=== PATIENT | male | born 1945 | race Hispanic/Latino ===

== ENCOUNTER 2017-11-15 18:56 | Emergency (ER) | payer MEDICARE ==
[2017-11-15 18:57] VITALS: PULSE 100
[2017-11-15 19:17] VITALS: BMI 31.0
[2017-11-15] MEDS ORDERED: Albuterol 0.083% Inhal Sol (2.5 mg/3 mL) UD INH STA (19:24)
[2017-11-15] MEDS ORDERED: Albuterol-Ipratrop 3 mg / 0.5 (3 ml) UD IH STA (19:24)
[2017-11-15 19:44] LABS: BASO # 0.03 K/mm3 (0.0-2.0); BASO % 0.3 % (0.0-3.0); EOS # 0.2 (0.0-0.7); EOS % 1.3 % (1.5-5.0); GRAN # 9.97 (1.4-6.5); GRAN % 83.8 % (50.0-68.0); HEMOGLOBIN 13.4 g/dL (14.0-18.0); LYMPH # 0.9 (1.2-3.4); LYMPH % 7.6 % (22.0-35.0); MEAN CELL VOLUME 89.3 fl (80.0-105.0); MEAN CORPUSCULAR HEMOGLOBIN 29.4 pg (25.0-35.0); MEAN CORPUSCULAR HGB CONC 32.9 g/dl (31.0-37.0); MEAN PLATELET VOLUME 9.3 fl (7.0-11.0); MONO # 0.8 (0.1-0.6); RBC 4.56 10^6/uL (3.5-6.1); RED CELL DISTRIBUTION WIDTH 16.1 % (11.5-14.5); URINE BILIRUBIN NEGATIVE (NEGATIVE); URINE BLOOD NEGATIVE (NEGATIVE); URINE GLUCOSE (UA) 100 mg/dL (NEGATIVE); URINE LEUKOCYTE ESTERASE TRACE Leu/uL (NEGATIVE); URINE PROTEIN NEGATIVE mg/dL (<30 mg/dL); URINE UROBILINOGEN 0.2 E.U./dL (<1 E.U./dL); WHITE BLOOD COUNT 11.9 10^3/ul (4.5-11.0)
[2017-11-15 19:45] LABS: URINE APPEARANCE CLEAR (CLEAR); URINE COLOR YELLOW (YELLOW)
[2017-11-15 19:50] LABS: ALB/GLOB RATIO 1.2 (1.1-1.8); ALBUMIN 4.2 g/dL (3.0-4.8); CALCIUM 10.2 mg/dL (8.4-10.5)
[2017-11-15 19:57] LABS: PROTHROMBIN TIME 45.3 SECONDS (9.4-12.5)
[2017-11-15 19:59] LABS: INR 3.83 (0.93-1.08)
[2017-11-15 20:00] LABS: VENOUS BLOOD GAS BASE EXCESS -0.7 mmol/L (0.0-2.0); VENOUS BLOOD GAS PO2 164 mm/Hg (30-55); VENOUS BLOOD PH 7.42 (7.32-7.43)
[2017-11-15 20:04] LABS: URINE BACTERIA FEW (NEG); URINE EPITHELIAL CELLS 0 - 2 /hpf (0-5); URINE FINE GRANULAR CAST 0 - 2 /hpf (0-2); URINE RBC 0 - 2 /hpf (0-2)
[2017-11-15] MEDS ORDERED: Phytonadione 10 MG in Sodium Chloride 0.9% 50 ML IV ONE (20:04)
[2017-11-15 20:33] LABS: TROPONIN I 0.09 ng/mL
--- NOTE | 2017-11-15 20:37 | ED PDOC ---
Arrival/HPI - General Chief Complaint: GI Problem Time Seen by Provider: 11/15/17 19:15 Historian: Patient - History of Present Illness Narrative History of Present Illness (Text): 11/15/17 19:20 Nba Alston is a 71 year old male, whose past medical history includes diabetes, CHF, and wears LVAD on coumadin, who presents to the emergency department complaining of coughing up blood prior to arrival. At present, patient is actively coughing up bright red blood, no clots. Patient's family states that patient was having dinner at home, eating a sandwich, when onset of symptoms occurred. Patient notes that a similar incident happened once before but not as severe. At that time, patient was treated at [facility].No other complaints offered at this time. Patient is a former smoker and quit smoking 3 years ago. PMD: Dr. Nick Parra Time/Duration: Prior to Arrival Symptom Onset: Sudden Symptom Course: Unchanged Severity Level: Mild Activities at Onset: Light, Eating Context: Home Past Medical History - Provider Review Nursing Documentation Reviewed: Yes - Infectious Disease Hx of Infectious Diseases: None - Tetanus Immunization Tetanus Immunization: Unknown - Cardiac Hx Hypertension: Yes Hx Pacemaker: Yes Other/Comment: LVAD, Defibrillator - Pulmonary Hx Chronic Obstructive Pulmonary Disease (COPD): Yes Hx Emphysema: Yes - Neurological Hx Paralysis: No - HEENT Hx HEENT Disorder: Yes (use reading glasses) - Renal Hx Renal Disorder: Yes - Endocrine/Metabolic Hx Diabetes Mellitus Type 1: Yes Hx Diabetes Mellitus Type 2: Yes - Hematological/Oncological Hx Blood Disorders: No Hx Blood Transfusions: No - Integumentary Hx Dermatological Disorder: No Other/Comment: multiple red herrera to ble from scratching. Pt "stated THe steroids they gave me make me itchy". left eye scar from boxing. - Musculoskeletal/Rheumatological Hx Musculoskeletal Disorders: Yes (shrapnel removed knee and hand) - Gastrointestinal Hx Gastrointestinal Disorders: Yes (gerd) Hx Gastroesophageal Reflux: Yes - Genitourinary/Gynecological Hx Genitourinary Disorders: No - Psychiatric Hx Emotional Abuse: No Hx Physical Abuse: No Hx Substance Use: No - Surgical History Hx Cholecystectomy: Yes Hx Orthopedic Surgery: Yes (knee) Other/Comment: LVAD insertion - Anesthesia Hx Anesthesia: Yes Hx Anesthesia Reactions: No Hx Malignant Hyperthermia: No - Suicidal Assessment Feels Threatened In Home Enviroment: No Family/Social History - Physician Review Nursing Documentation Reviewed: Yes Family/Social History: No Known Family HX Smoking Status: Former Smoker Hx Alcohol Use: No Hx Substance Use: No Hx Substance Use Treatment: No Allergies/Home Meds Allergies/Adverse Reactions: Allergies codeine Allergy (Verified 11/15/17 19:18) ITCHING nitorglycerin Allergy (Uncoded 11/15/17 19:18) RASH Home Medications: Home Meds Medication Instructions Recorded Confirmed Insulin Glargine,Hum.rec.anlog 45 unit SC ACB 07/09/14 11/07/15 [Lantus] Insulin Glargine,Hum.rec.anlog 50 unit SC HS 11/14/14 09/25/17 [Lantus] Zolpidem Tartrate [Ambien] 10 mg PO HS PRN 12/20/14 09/25/17 Docusate [Colace] 100 mg PO BID PRN 06/30/15 09/25/17 Spironolactone [Aldactone] 25 mg PO DAILY 06/30/15 09/25/17 Tiotropium [Spiriva] 18 mcg IH DAILY 06/30/15 09/25/17 Insulin Aspart, Recombinant 10 unit SC ACBD 07/05/15 09/25/17 [Novolog] Allopurinol [Zyloprim] 200 mg PO DAILY 11/07/15 09/25/17 Aspirin [Aspirin Chewable] 81 mg PO DAILY 11/07/15 09/25/17 Atorvastatin [Lipitor] 10 mg PO DAILY 11/07/15 09/25/17 Bisacodyl [Correctol] 10 mg PO DAILY PRN 11/07/15 09/25/17 Cholecalciferol (Vitamin D3) 2,000 units PO BID 11/07/15 09/25/17 [Vitamin D3] Furosemide [Lasix] 40 mg PO BID 11/07/15 09/25/17 Isosorbide Mononitrate [Ismo] 10 mg PO BID 11/07/15 11/07/15 Lisinopril [Zestril] 2.5 mg PO DAILY 11/07/15 11/07/15 Egrug-4-Yede Ethyl Esters 1 GM 1 gm PO BID 11/07/15 09/25/17 [Lovaza] Pantoprazole [Protonix EC Tab] 40 mg PO DAILY 11/07/15 09/25/17 Pramipexole [Mirapex] 0.5 tab PO DAILY 11/07/15 09/25/17 Tamsulosin [Flomax] 0.4 mg PO HS 11/07/15 09/25/17 Warfarin [Coumadin] 18 mcg PO DAILY 11/07/15 09/25/17 Review of Systems - Physician Review All systems were reviewed & negative as marked: Yes - Review of Systems Constitutional: absent: Fevers, Night Sweats Eyes: absent: Vision Changes ENT: absent: Hearing Changes Respiratory: Cough, Other (Coughing up blood). absent: SOB Cardiovascular: absent: Chest Pain Gastrointestinal: absent: Abdominal Pain Genitourinary Male: absent: Dysuria, Frequency Musculoskeletal: absent: Arthralgias Skin: absent: Rash, Pruritis Neurological: absent: Headache Endocrine: absent: Diaphoresis Hemo/Lymphatic: absent: Adenopathy Psychiatric: absent: Anxiety, Depression Physical Exam Vital Signs Reviewed: Yes Vital Signs Temp Pulse Resp BP Pulse Ox 11/16/17 00:39 98 F 99 H 24 85/71 L 92 L 11/15/17 23:18 98 F 99 H 23 89/50 L 90 L 11/15/17 22:47 92 H 24 85/56 L 94 L 11/15/17 22:30 98.1 F 89 23 78/37 L 97 11/15/17 21:43 90 25 H 94/55 L 91 L 11/15/17 21:25 98.4 F 92 H 27 H 81/62 L 92 L 11/15/17 19:19 98.8 F 74 20 93/75 L 96 Temperature: Afebrile Blood Pressure: Hypotensive Pulse: Regular Respiratory Rate: Normal Appearance: Positive for: Uncomfortable Pain Distress: None Mental Status: Positive for: Alert and Oriented X 3 - Systems Exam Head: Present: Atraumatic, Normocephalic Pupils: Present: PERRL Extroacular Muscles: Present: EOMI Conjunctiva: Present: Normal Mouth: Present: Moist Mucous Membranes Neck: No: JVD Respiratory/Chest: Present: Rales (Mild rales at the bases with some wheezes) Cardiovascular: Present: Regular Rate and Rhythm, Normal S1, S2. No: Murmurs Abdomen: Present: Normal Bowel Sounds. No: Tenderness, Distention, Peritoneal Signs Back: Present: Normal Inspection Upper Extremity: Present: Normal Inspection. No: Cyanosis, Edema Lower Extremity: Present: Normal Inspection. No: Edema Neurological: Present: GCS=15, CN II-XII Intact, Speech Normal Skin: Present: Warm, Dry, Normal Color. No: Rashes Psychiatric: Present: Alert, Oriented x 3, Normal Insight, Normal Concentration Medical Decision Making ED Course and Treatment: 11/15/17 20:39 Impression: 71 year old male complaining of coughing up blood prior to arrival. Differential Diagnosis included but are not limited to: Bronchiectasis vs. COPD Plan: -- Chest X-ray -- Chest CT -- VBG and Blood Culture -- Urine Culture -- Labs -- Albuterol, Duoneb, Solumedrol, and Vitamin K Injection -- Reassess and disposition Prior Visits: Notes and results from previous visits were reviewed. Patient was last seen in the emergency department on 09/25/17 for CHF exacerbation and felt shortness of breath. Progress Notes: 11/15/2017 21:[address] FINDINGS: LIMITATIONS: Extensive streak artifact from metallic devices in the heart. LUNGS: Multifocal areas of groundglass density in the lungs bilaterally, with a lower lobe predominance, most focal in the left lower lobe, suspicious for multifocal, bilateral groundglass consolidation. Diffuse pulmonary interstitial prominence, greatest in the lung periphery, with associated subpleural cystic changes seen in some areas. PLEURAL SPACE: No pneumothorax or significant pleural effusions seen. HEART: Left ventricular assist device in place, which causes extensive streak artifact. Prosthetic aortic valve. Cardiac pacing device is in place. Heart appears diffusely enlarged. No evidence of significant pericardial effusion. MEDIASTINUM: Esophagus is mildly dilated, and is filled with air and fluid/ debris. BONES/JOINTS: Sternotomy wires noted. SOFT TISSUES: Ventral hernia, with a wide neck, in the midline upper abdominal wall, which contains only fat. VASCULATURE: Exam is nondiagnostic for aortic dissection and pulmonary emboli, secondary to unenhanced technique. LYMPH NODES: Multiple small lymph nodes seen in the mediastinum, none appearing pathologically enlarged. This is a nonspecific finding. No evidence of diffuse pathologic lymphadenopathy. GALLBLADDER AND BILE DUCTS: Cholecystectomy clips. KIDNEYS AND URETERS: Bilateral perinephric stranding, a nonspecific finding. Low density lesions in the kidneys bilaterally, most likely representing cysts. IMPRESSION: - Groundglass consolidation in the lungs bilaterally, as described. In an acute setting, this could be due to alveolar pulmonary edema versus diffuse ground glass infiltrates /pneumonia. - Diffuse pulmonary interstitial thickening. This could be due to acute pulmonary vascular congestion, but it also has some features suggestive of underlying chronic interstitial lung disease, and recommend clinical correlation. - Cardiomegaly, with a left ventricular assist device in place. - See above for remaining findings. Dictator: Sarah Michelle MD 11/15/17 23:02 Discussed case with transfer referral center multiple times and am told no beds are available for patient. Requested to call cardiac fellow directly. 11/15/17 23:[address] Willoughby, car pre cooler, whom spoke to ER doctor Dr. Nick at transfer center, whom accepts patient. Nurse currently calling for ambulance for ER-to-ER transfer. - Lab Interpretations Microbiology Results: Microbiology Results 11/15/17 20:15 Blood-Venous Blood Culture - Preliminary NO GROWTH AFTER 48 HOURS 11/15/17 19:45 Blood-Venous Blood Culture - Preliminary NO GROWTH AFTER 48 HOURS 11/15/17 20:31 Urine,Clean Catch Urine Culture - Final No Growth (<1,000 CFU/ML) Lab Results: 11/15/17 19:25 11/15/17 19:25 Lab Results 11/15/17 19:45: pO2 164 H, VBG pH 7.42, VBG pCO2 36.0 L, VBG HCO3 23.4, VBG Total CO2 24.5, VBG O2 Sat (Calc) 99.6 H, VBG Base Excess -0.7 L, VBG Potassium 4.6, Glucose 254 H, Lactate 2.0, FiO2 21.0, Sodium 135.0, Chloride 104.0, Venous Blood Potassium 4.6 11/15/17 19:25: Urine Color Yellow, Urine Appearance Clear, Urine pH 6.0, Ur Specific [place] 1.020, Urine Protein Negative, Urine Glucose (UA) 100 H, Urine Ketones Negative, Urine Blood Negative, Urine Nitrate Negative, Urine Bilirubin Negative, Urine Urobilinogen 0.2, Ur Leukocyte Esterase Trace H, Urine RBC 0 - 2 , Urine WBC 2 - 5, Ur Epithelial Cells 0 - 2, Urine Bacteria Few, Fine Granular Casts 0 - 2 11/15/17 19:25: Blood Type O POSITIVE, Antibody Screen Negative, BBK History Checked Patient has bt 11/15/17 19:25: Sodium 138, Potassium 5.0, Chloride 102, Carbon Dioxide 24, Anion Gap 17, BUN 29 H, Creatinine 2.0 H, Est GFR ( Amer) 40, Est GFR ( Non-Af Amer) 33, Random Glucose 254 H, Calcium 10.2, Total Bilirubin 0.7, AST 36 , ALT 25, Alkaline Phosphatase 95, Lactate Dehydrogenase 826 H, Total Creatine Kinase 48, Troponin I 0.09, NT-Pro-B Natriuret Pep 1740 H, Total Protein 7.8, Albumin 4.2, Globulin 3.6, Albumin/Globulin Ratio 1.2 11/15/17 19:25: PT 45.3 H, INR 3.83 H* 11/15/17 19:25: WBC 11.9 H, RBC 4.56, Hgb 13.4 L D, Hct 40.7 L, MCV 89.3, MCH 29.4, MCHC 32.9, RDW 16.1 H, Plt Count 292, MPV 9.3, Gran % 83.8 H, Lymph % ( Auto) 7.6 L, Schuyler % (Auto) 7.0 H, Eos % (Auto) 1.3 L, Baso % (Auto) 0.3, Gran # 9.97 H, Lymph # (Auto) 0.9 L, Schuyler # (Auto) 0.8 H, Eos # (Auto) 0.2, Baso # ( Auto) 0.03 I have reviewed the lab results: Yes - RAD Interpretation Radiology Orders: 11/15/17 19:20 CHEST ONE VIEW [RAD] Stat 11/15/17 19:48 CHEST W/O CONTRAST [CT] Stat - Medication Orders Current Medication Orders: Discontinued Medications Albuterol Sulfate (Albuterol 0.083% Inhal Sona (2.5 Mg/3 Ml) Ud) 5 mg INH STAT STA Stop: 11/15/17 19:25 Last Admin: 11/15/17 19:42 Dose: 5 mg Albuterol/Ipratropium (Duoneb 3 Mg/0.5 Mg (3 Ml) Ud) 3 ml IH STAT STA Stop: 11/15/17 19:25 Last Admin: 11/15/17 19:42 Dose: 3 ml Phytonadione 10 mg/ Sodium (Chloride) 51 mls @ 100 mls/hr IV ONCE ONE Stop: 11/15/17 20:34 Last Admin: 11/15/17 20:27 Dose: 100 mls/hr eMAR Start Stop Document 11/15/17 20:27 RD (Rec: 11/15/17 20:27 RD [id number]) Intravenous Solution Start Date 11/15/17 Start Time 20:27 End Date 11/15/17 End time 21:27 Total Infusion Time 60 Lorazepam (Ativan) 1 mg IVP ONCE ONE PRN Reason: Protocol Stop: 11/15/17 21:20 Last Admin: 11/15/17 21:38 Dose: 1 mg IVP Administration Document 11/15/17 21:38 RD (Rec: 11/15/17 21:38 RD [id number]) Charges for Administration # of IVP Administrations 1 Methylprednisolone (Solu-Medrol) 125 mg IVP STAT STA Stop: 11/15/17 19:25 Last Admin: 11/15/17 19:42 Dose: 125 mg IVP Administration Document 11/15/17 19:42 RD (Rec: 11/15/17 19:42 RD [id number]) Charges for Administration # of IVP Administrations 1 - PA / DERRICK ENGINEER / Resident Statement MD/DO has reviewed & agrees with the documentation as recorded. - Scribe Statement The provider has reviewed the documentation as recorded by the Akil Sanchez Provider Scribe Attestation: All medical record entries made by the Marilouibruddy were at my direction and personally dictated by me. I have reviewed the chart and agree that the record accurately reflects my personal performance of the history, physical exam, medical decision making, and the department course for this patient. I have also personally directed, reviewed, and agree with the discharge instructions and disposition. Disposition/Present on Arrival - Present on Arrival Any Indicators Present on Arrival: No History of DVT/PE: No History of Uncontrolled Diabetes: No Urinary Catheter: No History of Decub. Ulcer: No History Surgical Site Infection Following: None - Disposition Have Diagnosis and Disposition been Completed?: Yes Diagnosis: Major hemoptysis, Elevated INR, Congestive heart failure (CHF), COPD (chronic obstructive pulmonary disease), Presence of left ventricular assist device (LVAD ) Disposition: Transfer [facility] Disposition Time: 02:00 Patient Plan: Transfer To ([facility]) Condition: FAIR Discharge Instructions (ExitCare): Heart Failure (ED) Referrals: Nick Parra MD [Primary Care Provider] - Follow up with primary Forms: [employer] [place]
--- NOTE | 2017-11-15 21:23 | CT ---
EXAM: CT Chest Without Intravenous Contrast EXAM DATE/TIME: 11/15/2017 7:48 PM CLINICAL HISTORY: 71 years old, male; Signs and symptoms; Other: Hemopysis; Prior surgery; Surgery date: 6+ months; Surgery type: HX pacemaker, HX lvad, defibrillator; Patient HX: HX copd; Additional info: Hemoptysis, copd, chf TECHNIQUE: Axial computed tomography images of the chest without intravenous contrast. All CT scans at this facility use one or more dose reduction techniques, viz.: automated exposure control; ma/kV adjustment per patient size (including targeted exams where dose is matched to indication; i.e. head); or iterative reconstruction technique. Coronal and sagittal reformatted images were created and reviewed. COMPARISON: Prior chest radiographs of 2017-09-25 FINDINGS: LIMITATIONS: Extensive streak artifact from metallic devices in the heart. LUNGS: Multifocal areas of groundglass density in the lungs bilaterally, with a lower lobe predominance, most focal in the left lower lobe, suspicious for multifocal, bilateral groundglass consolidation. Diffuse pulmonary interstitial prominence, greatest in the lung periphery, with associated subpleural cystic changes seen in some areas. PLEURAL SPACE: No pneumothorax or significant pleural effusions seen. HEART: Left ventricular assist device in place, which causes extensive streak artifact. Prosthetic aortic valve. Cardiac pacing device is in place. Heart appears diffusely enlarged. No evidence of significant pericardial effusion. MEDIASTINUM: Esophagus is mildly dilated, and is filled with air and fluid/debris. BONES/JOINTS: Sternotomy wires noted. SOFT TISSUES: Ventral hernia, with a wide neck, in the midline upper abdominal wall, which contains only fat. VASCULATURE: Exam is nondiagnostic for aortic dissection and pulmonary emboli, secondary to unenhanced technique. LYMPH NODES: Multiple small lymph nodes seen in the mediastinum, none appearing pathologically enlarged. This is a nonspecific finding. No evidence of diffuse pathologic lymphadenopathy. GALLBLADDER AND BILE DUCTS: Cholecystectomy clips. KIDNEYS AND URETERS: Bilateral perinephric stranding, a nonspecific finding. Low density lesions in the kidneys bilaterally, most likely representing cysts. IMPRESSION: - Groundglass consolidation in the lungs bilaterally, as described. In an acute setting, this could be due to alveolar pulmonary edema versus diffuse ground glass infiltrates/pneumonia. - Diffuse pulmonary interstitial thickening. This could be due to acute pulmonary vascular congestion, but it also has some features suggestive of underlying chronic interstitial lung disease, and recommend clinical correlation. - Cardiomegaly, with a left ventricular assist device in place. - See above for remaining findings.
[2017-11-16 00:06] VITALS: PULSE 99; TEMP 98
[2017-11-16 00:43] VITALS: BP 85/71; RESP 24; O2SAT 92
--- NOTE | 2017-11-16 08:35 | RAD ---
PROCEDURE: CHEST RADIOGRAPH, 1 VIEW HISTORY: Hemoptysis An Impressive Amount COMPARISON: 09/25/2017 FINDINGS: LUNGS: Clear. PLEURA: No pneumothorax or pleural fluid seen. CARDIOVASCULAR: Normal heart size. No congestive change. Permanent pacemaker. AICD. Sternotomy wires. OSSEOUS STRUCTURES: No significant abnormalities. VISUALIZED UPPER ABDOMEN: Normal. OTHER FINDINGS: None. IMPRESSION: No active disease.
== END 2017-11-16 00:44 | disposition short-term general hospital (02) ==
LOC: ED 18:56
DX: R04.2 Hemoptysis (principal); I11.0 Hypertensive heart disease with heart failure; I50.9 Heart failure, unspecified; J44.9 Chronic obstructive pulmonary disease, unspecified; R79.1 Abnormal coagulation profile; Z95.811 Presence of heart assist device; E11.9 Type 2 diabetes mellitus without complications; Z79.01 Long term (current) use of anticoagulants; Z87.891 Personal history of nicotine dependence
CPT/HCPCS: 36430; 71045; 71250; 80053; 81001; 82550; 82803; 83615; 83880; 84484; 85025; 85610; 86850; 86900; 87040; 87086; 96365; 96375; 99284; J2060; J2930; J3430; P9017